=== PATIENT | male | born 1935 | race Caucasian/White ===

== ENCOUNTER → 2020-05-20 | Outpatient (CLI) | payer MEDICARE ==
[~2020-05-20] MED LIST: ALLO100T; INDO50SU; LISI40TA; METO50TA29; MINO50CA3; NITR0.4T24; POTA20TA40; PRED10TA16; SIMV80TA17
--- NOTE | 2020-05-20 10:11 | RAD ---
Abdominal ultrasound without comparison for pancytopenia, fatigue. TECHNIQUE AND FINDINGS: Real-time grayscale and color Doppler evaluation of the abdominal organs is performed. The liver measures 13.2 cm and is normal in contour and echogenicity, with no significant parenchymal abnormalities and no intra or extrahepatic biliary ductal dilatation. Common bile duct measures 2 mm in diameter. The portal vein is patent and hepatopedal. The pancreas is largely obscured. The aorta is mildly atherosclerotic but nonaneurysmal. IVC is patent. The gallbladder is normal in appearance with no stones or sludge. No sonographic Cedeño sign was elicited. The right kidney measures 12.2 x 6.2 x 5.6 cm and the left measures 12.8 x 5.0 x 4.8 cm. There is no hydronephrosis or perinephric fluid on either kidney. On the right, there is a nonobstructing shadowing 7 mm renal calculus in the hilum. The spleen is normal in size and echogenicity. IMPRESSION: 1. Nonobstructing right renal calculus. 2. No evidence of acute cholecystitis. Electronically signed by: Jasen Johnson MD (05/20/2020 10:08 AM) [id number]
== END ==
LOC: US 08:34
PROVIDERS: ATTEND Internal Medicine Hematology & Oncology
DX: N20.0 Calculus of kidney (principal); I70.0 Atherosclerosis of aorta; D61.818 Other pancytopenia
CPT/HCPCS: 76700